=== PATIENT | male | born 1995 | race Two or more races ===

== ENCOUNTER 2017-12-02 19:49 | Observation (INO) | payer MEDICAID, OTHER, SELFPAY ==
[~2017-12-02] VITALS: Ht 167.6 cm; Wt 68.0 kg
[2017-12-02 20:23] LABS: BASOPHILS # (AUTO) 0.03 x10^3/uL (0-0.1); BASOPHILS % (AUTO) 0 % (0-1); EOSINOPHILS % (AUTO) 0 % (1-7); LYMPHOCYTES # (AUTO) 0.84 x10^3/uL (1-3.4); LYMPHOCYTES % (AUTO) 5 % (22-44); MD NO; MEAN CORPUSCULAR HEMOGLOBIN 30.5 pg (27.5-34.5); MEAN CORPUSCULAR HGB CONC 34.6 g/dL (33.2-36.2); MEAN PLATELET VOLUME 8.2 fL (7.4-10.4); MONOCYTES # (AUTO) 0.36 x10^3/uL (0.2-0.8); MONOCYTES % (AUTO) 2 % (2-9); NEUTROPHILS # (AUTO) 15.76 x10^3/uL (1.8-6.8); NEUTROPHILS % (AUTO) 93 % (42-75); PLATELET COUNT 260 x10^3/uL (130-400); RED BLOOD COUNT 5.16 x10^6/uL (4.38-5.82); RED CELL DISTRIBUTION WIDTH 13.3 % (9.4-14.8)
[2017-12-02 20:26] LABS: ALANINE AMINOTRANSFERASE 22 U/L (12-78); ANION GAP 8 mmol/L (5-15); CALCIUM 9.9 mg/dL (8.5-10.1); CHLORIDE 105 mmol/L (98-107); CREATININE 1.08 mg/dL (0.7-1.3)
[2017-12-02 20:28] LABS: ALKALINE PHOSPHATASE 82 U/L (45-117); BILIRUBIN,TOTAL 1.3 mg/dL (0.2-1.0); TOTAL PROTEIN 8.5 g/dL (6.4-8.2)
[2017-12-02] MEDS ORDERED: SODIUM CHLORIDE FLUSH 10ML SYR IVF ONE ×2 (20:30→22:00)
[2017-12-02] MEDS ORDERED: PROMETHAZINE 25 MG/ML, 1ML ONE (20:51)
[2017-12-02] MEDS ORDERED: PROMETHAZINE 25 MG/ML, 1ML IM ONE (21:00)
[2017-12-02 21:18] LABS: MICROSCOPIC INDICATED
[2017-12-02 21:26] LABS: CULTURE INDICATED? NO
[2017-12-02] MEDS ORDERED: SODIUM CHLORIDE 0.9% 1,000ML IVBOLUS ONE (22:00)
[2017-12-02] MEDS ORDERED: PROCHLORPERAZINE 5 MG/ML, 2ML IV ONE (22:00)
[2017-12-02] MEDS ORDERED: PROCHLORPERAZINE 5 MG/ML, 2ML ONE (22:05)
[2017-12-03] MEDS ORDERED: ACETAMINOPHEN 325 MG TABLET PO PRN
[2017-12-03] MEDS ORDERED: BISACODYL 10 MG SUPP PR PRN
[2017-12-03] MEDS ORDERED: PROMETHAZINE 25 MG/ML, 1ML IM PRN
[2017-12-03] MEDS ORDERED: SIMETHICONE DROPS 40 MG/0.6 ML BOTTLE PO PRN (00:30)
[2017-12-03 01:14] VITALS: BP 85/50
[2017-12-03] MEDS: D5%-0.45% NACL 1,000 ML IV SCH ×2 (01:27→10:39)
[2017-12-03 01:35] VITALS: BP 137/79
[2017-12-03 01:57] VITALS: BP 100/54
[2017-12-03 08:25] VITALS: BP 102/64
[2017-12-03 14:51] VITALS: BP 108/72
== END 2017-12-03 17:40 | disposition home or self-care (01) ==
LOC: ED 23:38 → INTOOBSV 23:59 → EDIP 23:59 → 3NW 12-03 00:13 → UNDODISIN 12-03 17:40
PROVIDERS: ADMIT Internal Medicine; ATTEND Hospitalist
DX: R11.2 Nausea with vomiting, unspecified (principal); F12.10 Cannabis abuse, uncomplicated; D72.829 Elevated white blood cell count, unspecified; Z87.891 Personal history of nicotine dependence; E86.0 Dehydration
CPT/HCPCS: 36415; 74021; 80053; 81001; 83690; 85025; 96361; 96372; 96374; 99285; G0378; J0780; J2550; J7030

== ENCOUNTER 2018-03-11 09:57 | Emergency (ER) | payer SELFPAY ==
[~2018-03-11] VITALS: Ht 167.6 cm; Wt 69.7 kg
[2018-03-11 12:23] LABS: BASOPHILS # (AUTO) 0.02 x10^3/uL (0-0.1); BASOPHILS % (AUTO) 0 % (0-1); EOSINOPHILS % (AUTO) 0 % (1-7); LYMPHOCYTES # (AUTO) 0.97 x10^3/uL (1-3.4); LYMPHOCYTES % (AUTO) 6 % (22-44); MD NO; MEAN CORPUSCULAR HEMOGLOBIN 30.7 pg (27.5-34.5); MEAN CORPUSCULAR HGB CONC 34.5 g/dL (33.2-36.2); MEAN CORPUSCULAR VOLUME 89.1 fL (81-97); MEAN PLATELET VOLUME 8.7 fL (7.4-10.4); MONOCYTES # (AUTO) 0.45 x10^3/uL (0.2-0.8); MONOCYTES % (AUTO) 3 % (2-9); NEUTROPHILS # (AUTO) 15.49 x10^3/uL (1.8-6.8); NEUTROPHILS % (AUTO) 92 % (42-75); PLATELET COUNT 213 x10^3/uL (130-400); RED BLOOD COUNT 5.54 x10^6/uL (4.38-5.82); RED CELL DISTRIBUTION WIDTH 13.3 % (9.4-14.8)
[2018-03-11] MEDS ORDERED: SODIUM CHLORIDE 0.9% 1,000ML IVBOLUS ONE ×2 (12:30→13:30)
[2018-03-11] MEDS ORDERED: ONDANSETRON 2MG/ML, 2ML IVPush ONE (12:30)
[2018-03-11] MEDS ORDERED: SODIUM CHLORIDE FLUSH 10ML SYR IVF ONE (12:30)
[2018-03-11 12:32] LABS: ALBUMIN 4.9 g/dL (3.4-5.0); ANION GAP 8 mmol/L (5-15); CALCIUM 9.8 mg/dL (8.5-10.1); CHLORIDE 108 mmol/L (98-107)
[2018-03-11 12:36] LABS: ALANINE AMINOTRANSFERASE 30 U/L (12-78); ALKALINE PHOSPHATASE 87 U/L (45-117); BILIRUBIN,TOTAL 0.6 mg/dL (0.2-1.0); CREATININE 0.95 mg/dL (0.7-1.3); TOTAL PROTEIN 8.3 g/dL (6.4-8.2)
[2018-03-11] MEDS ORDERED: ONDANSETRON ODT 4 MG ONE (12:40)
[2018-03-11] MEDS ORDERED: MORPHINE SULFATE 4 MG/ML, 1ML ONE (13:19)
[2018-03-11] MEDS ORDERED: MORPHINE SULFATE 4 MG/ML, 1ML IVPush PRN (13:30)
[2018-03-11] MEDS ORDERED: OMNIPAQUE 350 MG/ML, 100ML BOTTLE ONE (13:40)
[2018-03-11 14:28] VITALS: BP 118/71
== END 2018-03-11 14:30 | disposition home or self-care (01) ==
LOC: ED 13:04
DX: K52.9 Noninfective gastroenteritis and colitis, unspecified (principal); T78.1XXA Other adverse food reactions, not elsewhere classified, initial encounter; E86.0 Dehydration; X58.XXXA Exposure to other specified factors, initial encounter
CPT/HCPCS: 36415; 74177; 80053; 83690; 85025; 96361; 96374; 96375; 99285; J2405; J7030; Q9967

== ENCOUNTER 2018-03-11 21:41 | Emergency (ER) | payer SELFPAY ==
[~2018-03-11] VITALS: Ht 167.6 cm; Wt 65.0 kg
[2018-03-11] MEDS ORDERED: METOCLOPRAMIDE 5 MG/ML, 2ML ONE (22:18)
[2018-03-11] MEDS ORDERED: DIPHENHYDRAMINE 50 MG/ML, 1ML ONE (22:18)
[2018-03-11 22:28] LABS: BASOPHILS # (AUTO) 0.03 x10^3/uL (0-0.1); BASOPHILS % (AUTO) 0 % (0-1); EOSINOPHILS % (AUTO) 0 % (1-7); LYMPHOCYTES # (AUTO) 1.14 x10^3/uL (1-3.4); LYMPHOCYTES % (AUTO) 10 % (22-44); MD NO; MEAN CORPUSCULAR HGB CONC 34.2 g/dL (33.2-36.2); MEAN CORPUSCULAR VOLUME 87.7 fL (81-97); MEAN PLATELET VOLUME 8.9 fL (7.4-10.4); MONOCYTES # (AUTO) 0.43 x10^3/uL (0.2-0.8); MONOCYTES % (AUTO) 4 % (2-9); NEUTROPHILS # (AUTO) 9.57 x10^3/uL (1.8-6.8); NEUTROPHILS % (AUTO) 86 % (42-75); PLATELET COUNT 235 x10^3/uL (130-400); RED BLOOD COUNT 5.49 x10^6/uL (4.38-5.82); RED CELL DISTRIBUTION WIDTH 13.2 % (9.4-14.8)
[2018-03-11] MEDS ORDERED: METOCLOPRAMIDE 5 MG/ML, 2ML IVPush ONE (22:30)
[2018-03-11] MEDS ORDERED: SODIUM CHLORIDE 0.9% 1,000ML IVBOLUS ONE (22:30)
[2018-03-11] MEDS ORDERED: DIPHENHYDRAMINE 50 MG/ML, 1ML IVPush ONE (22:30)
[2018-03-11 22:35] LABS: ALANINE AMINOTRANSFERASE 29 U/L (12-78); ALBUMIN 5.1 g/dL (3.4-5.0); ANION GAP 9 mmol/L (5-15); CALCIUM 9.3 mg/dL (8.5-10.1); CHLORIDE 102 mmol/L (98-107); CREATININE 1.14 mg/dL (0.7-1.3)
[2018-03-11 22:37] LABS: ALKALINE PHOSPHATASE 91 U/L (45-117); BILIRUBIN,TOTAL 1.1 mg/dL (0.2-1.0); TOTAL PROTEIN 8.7 g/dL (6.4-8.2)
[2018-03-11] MEDS ORDERED: POTASSIUM CHLORIDE 20 MEQ TAB.ER.PRT ONE (23:15)
[2018-03-11] MEDS ORDERED: POTASSIUM CHLORIDE 20 MEQ TAB.ER.PRT PO ONE (23:30)
[2018-03-11 23:40] VITALS: BP 127/85
== END 2018-03-11 23:41 | disposition home or self-care (01) ==
LOC: ED 21:55
DX: R11.2 Nausea with vomiting, unspecified (principal); R19.7 Diarrhea, unspecified; E87.6 Hypokalemia
CPT/HCPCS: 36415; 80053; 83690; 85025; 96361; 96374; 96375; 99284; J1200; J2765; J7030

== ENCOUNTER 2018-04-19 08:52 | Emergency (ER) | payer OTHER ==
[~2018-04-19] VITALS: Ht 167.6 cm; Wt 68.0 kg
[2018-04-19] MEDS ORDERED: FAMOTIDINE 20 MG/2 ML ONE (09:25)
[2018-04-19] MEDS ORDERED: ONDANSETRON 2MG/ML, 2ML ONE (09:27)
[2018-04-19 09:30] LABS: BASOPHILS # (AUTO) 0.05 x10^3/uL (0-0.1); BASOPHILS % (AUTO) 0 % (0-1); EOSINOPHILS % (AUTO) 0 % (1-7); LYMPHOCYTES # (AUTO) 1.54 x10^3/uL (1-3.4); LYMPHOCYTES % (AUTO) 10 % (22-44); MD NO; MEAN CORPUSCULAR HEMOGLOBIN 30.1 pg (27.5-34.5); MEAN CORPUSCULAR VOLUME 88.6 fL (81-97); MEAN PLATELET VOLUME 8.2 fL (7.4-10.4); MONOCYTES # (AUTO) 0.54 x10^3/uL (0.2-0.8); MONOCYTES % (AUTO) 4 % (2-9); NEUTROPHILS # (AUTO) 13.46 x10^3/uL (1.8-6.8); NEUTROPHILS % (AUTO) 86 % (42-75); PLATELET COUNT 230 x10^3/uL (130-400); RED BLOOD COUNT 5.56 x10^6/uL (4.38-5.82); RED CELL DISTRIBUTION WIDTH 13.4 % (9.4-14.8)
[2018-04-19] MEDS ORDERED: FAMOTIDINE 20 MG/2 ML IVP ONE (09:30)
[2018-04-19] MEDS ORDERED: SODIUM CHLORIDE 0.9% 1,000ML IVBOLUS ONE (09:30)
[2018-04-19] MEDS ORDERED: ONDANSETRON 2MG/ML, 2ML IVPush ONE (09:30)
[2018-04-19] MEDS ORDERED: SODIUM CHLORIDE FLUSH 10ML SYR IVF ONE (09:30)
[2018-04-19 09:40] LABS: CHLORIDE 108 mmol/L (98-107)
[2018-04-19 09:41] LABS: ALANINE AMINOTRANSFERASE 25 U/L (12-78); ALBUMIN 4.7 g/dL (3.4-5.0); ANION GAP 6 mmol/L (5-15); CALCIUM 9.6 mg/dL (8.5-10.1); CREATININE 0.91 mg/dL (0.7-1.3)
[2018-04-19 09:45] LABS: ALKALINE PHOSPHATASE 85 U/L (45-117); BILIRUBIN,TOTAL 0.4 mg/dL (0.2-1.0); TOTAL PROTEIN 8.2 g/dL (6.4-8.2)
[2018-04-19] MEDS ORDERED: METOCLOPRAMIDE 5 MG/ML, 2ML ONE (11:27)
[2018-04-19] MEDS ORDERED: METOCLOPRAMIDE 5 MG/ML, 2ML IVPush ONE (11:30)
[2018-04-19 12:26] VITALS: BP 113/78
== END 2018-04-19 12:29 | disposition home or self-care (01) ==
LOC: ED 10:00
DX: R11.2 Nausea with vomiting, unspecified (principal); R10.13 Epigastric pain
CPT/HCPCS: 36415; 74021; 80053; 83690; 85025; 96361; 96374; 96375; 99285; J2405; J2765; J7030; S0028

== ENCOUNTER 2018-04-19 21:25 | Emergency (ER) | payer OTHER ==
[~2018-04-19] VITALS: Ht 167.6 cm; Wt 67.7 kg
[2018-04-19] MEDS ORDERED: PROCHLORPERAZINE 5 MG/ML, 2ML ONE (21:45)
[2018-04-19] MEDS ORDERED: SODIUM CHLORIDE 0.9% 1,000ML IVBOLUS ONE (22:00)
[2018-04-19] MEDS ORDERED: PROCHLORPERAZINE 5 MG/ML, 2ML IVPush ONE (22:00)
[2018-04-19 22:06] LABS: BASOPHILS # (AUTO) 0.01 x10^3/uL (0-0.1); BASOPHILS % (AUTO) 0 % (0-1); EOSINOPHILS % (AUTO) 0 % (1-7); LYMPHOCYTES # (AUTO) 1.47 x10^3/uL (1-3.4); LYMPHOCYTES % (AUTO) 13 % (22-44); MD NO; MEAN CORPUSCULAR HEMOGLOBIN 30.6 pg (27.5-34.5); MEAN CORPUSCULAR HGB CONC 34.6 g/dL (33.2-36.2); MEAN CORPUSCULAR VOLUME 88.5 fL (81-97); MEAN PLATELET VOLUME 8.4 fL (7.4-10.4); MONOCYTES # (AUTO) 0.68 x10^3/uL (0.2-0.8); MONOCYTES % (AUTO) 6 % (2-9); NEUTROPHILS # (AUTO) 8.77 x10^3/uL (1.8-6.8); NEUTROPHILS % (AUTO) 80 % (42-75); PLATELET COUNT 226 x10^3/uL (130-400); RED BLOOD COUNT 5.14 x10^6/uL (4.38-5.82); RED CELL DISTRIBUTION WIDTH 13.2 % (9.4-14.8)
[2018-04-19 22:16] LABS: ALANINE AMINOTRANSFERASE 22 U/L (12-78); ALBUMIN 4.2 g/dL (3.4-5.0); ANION GAP 12 mmol/L (5-15); CALCIUM 8.8 mg/dL (8.5-10.1); CHLORIDE 107 mmol/L (98-107); CREATININE 0.94 mg/dL (0.7-1.3)
[2018-04-19 22:19] LABS: ALKALINE PHOSPHATASE 74 U/L (45-117); BILIRUBIN,TOTAL 0.7 mg/dL (0.2-1.0); TOTAL PROTEIN 7.6 g/dL (6.4-8.2)
[2018-04-19 23:00] VITALS: BP 122/82
== END 2018-04-19 23:49 | disposition home or self-care (01) ==
LOC: ED 21:43
DX: R11.2 Nausea with vomiting, unspecified (principal); R19.7 Diarrhea, unspecified; E86.9 Volume depletion, unspecified; F17.200 Nicotine dependence, unspecified, uncomplicated
CPT/HCPCS: 36415; 80053; 85025; 96374; 99284; J0780; J7030

== ENCOUNTER 2019-01-12 15:00 | Emergency (ER) | payer SELFPAY ==
[~2019-01-12] VITALS: Ht 170.2 cm; Wt 83.2 kg
--- NOTE | 2019-01-12 15:05 | NUR ---
PT ARRIVES T ROOM 1 AMBULATORY WITH FRIEND. PT C/O VOMITING WITH EIPGASTRIC ABD PAIN SINCE 4AM. REPORTING FLANK PAIN AND URINARY PAIN X1 WEEK. PT AAO X 4, DRESSED IN GOWN AND RESTING COMFORTABLY ON GURNEY. ON ROOM AIR. FALL PRECAUTIONS IN PLACE.
[2019-01-12] MEDS ORDERED: PROMETHAZINE 25 MG/ML, 1ML IM ONE (16:00)
[2019-01-12] MEDS ORDERED: PROMETHAZINE 25 MG/ML, 1ML ONE (16:07)
--- NOTE | 2019-01-12 16:11 | NUR ---
PT MEDICATED FOR NAUSEA PER MD ORDER, SEE MAR. PT PROVIDED BLANKET FOR COMFORT.
[2019-01-12 16:24] LABS: BASOPHILS # (AUTO) 0.02 x10^3/uL (0-0.1); BASOPHILS % (AUTO) 0 % (0-1); EOSINOPHILS % (AUTO) 0 % (1-7); LYMPHOCYTES # (AUTO) 1.06 x10^3/uL (1-3.4); LYMPHOCYTES % (AUTO) 7 % (22-44); MD NO; MEAN CORPUSCULAR HEMOGLOBIN 30.2 pg (27.5-34.5); MEAN CORPUSCULAR HGB CONC 33.8 g/dL (33.2-36.2); MEAN CORPUSCULAR VOLUME 89.4 fL (81-97); MEAN PLATELET VOLUME 8.2 fL (7.4-10.4); MONOCYTES # (AUTO) 0.67 x10^3/uL (0.2-0.8); MONOCYTES % (AUTO) 5 % (2-9); NEUTROPHILS # (AUTO) 12.71 x10^3/uL (1.8-6.8); NEUTROPHILS % (AUTO) 88 % (42-75); PLATELET COUNT 236 x10^3/uL (130-400); RED BLOOD COUNT 5.38 x10^6/uL (4.38-5.82); RED CELL DISTRIBUTION WIDTH 13.8 % (9.4-14.8)
[2019-01-12 16:36] LABS: ALANINE AMINOTRANSFERASE 27 U/L (12-78); ALBUMIN 5.1 g/dL (3.4-5.0); ANION GAP 10 mmol/L (5-15); CALCIUM 9.8 mg/dL (8.5-10.1); CHLORIDE 104 mmol/L (98-107); CREATININE 2.04 mg/dL (0.7-1.3)
[2019-01-12 16:39] LABS: ALKALINE PHOSPHATASE 83 U/L (45-117); TOTAL PROTEIN 8.7 g/dL (6.4-8.2)
[2019-01-12] MEDS ORDERED: SODIUM CHLORIDE FLUSH 10ML SYR IVF ONE (17:30)
[2019-01-12] MEDS ORDERED: SODIUM CHLORIDE 0.9% 1,000ML IVBOLUS ONE (17:30)
--- NOTE | 2019-01-12 17:31 | NUR ---
PIV ESTABLISHED BY THIS RN. BOLUS OF NS INFUSING PER MD ORDER, SEE MAR.
[2019-01-12 17:58] LABS: MICROSCOPIC AUTO
[2019-01-12 18:11] LABS: CULTURE INDICATED? YES
[2019-01-12] MEDS ORDERED: FAMOTIDINE 20 MG/2 ML ONE (18:13)
[2019-01-12] MEDS ORDERED: PROCHLORPERAZINE 5 MG/ML, 2ML ONE (18:13)
--- NOTE | 2019-01-12 18:17 | NUR ---
PT STILL NAUSEOUS, NOTIFIED, NEW ORDERS RECEIVED AND IMPLEMENTED, SEE MAR.
[2019-01-12] MEDS ORDERED: FAMOTIDINE 20 MG/2 ML IVP ONE (18:30)
[2019-01-12] MEDS ORDERED: PROCHLORPERAZINE 5 MG/ML, 2ML IVPush ONE (18:30)
--- NOTE | 2019-01-12 18:48 | NUR ---
PO CHALLENGE IN PROGRESS.
--- NOTE | 2019-01-12 19:04 | NUR ---
REPORT GIVEN TO DENNIS MAYO.
--- NOTE | 2019-01-12 19:31 | NUR ---
PT RESTING ON GURNEY, STATED "I HAVEN'T HAD ANYTHING ELSE TO DRINK", DISCUSSED NEED FOR PT TO TAKE PO FLUIDS, PT VERBALIZED UNDERXSTANDING AND AGREEMENT. MONITORS IN PLACE, CALL LIGHT WITHIN REACH
[2019-01-12 19:33] VITALS: BP 98/49
--- NOTE | 2019-01-12 19:45 | NUR ---
PT TOLERATING PO FLUIDS, DENIES NAUSEA, PAIN
--- NOTE | 2019-01-12 20:01 | NUR ---
ALEJO RN: PT D/C WITH D/C SUMMARY AND SCRIPTS. ALL QUESTIONS ANSWERED. PT DENIES ANY OTHER NEEDS PERTAINING TO THIS VISIT. PT IV D/C WITH TIP INTACT. PT AMBUALTES TO REGISTRATION DESK WITH STEADY GAIT FOR D/C HOME WITH COUSIN.
== END 2019-01-12 20:03 | disposition home or self-care (01) ==
LOC: ED 16:18
DX: R11.2 Nausea with vomiting, unspecified (principal); N28.9 Disorder of kidney and ureter, unspecified; R10.13 Epigastric pain; F17.200 Nicotine dependence, unspecified, uncomplicated
CPT/HCPCS: 36415; 74021; 80053; 81001; 83690; 85025; 87086; 96361; 96372; 96374; 96375; 99284; J0780; J2550; J3490; J7030

== ENCOUNTER 2019-01-14 06:35 | Emergency (ER) | payer SELFPAY ==
[~2019-01-14] VITALS: Ht 167.6 cm; Wt 85.1 kg
[2019-01-14] MEDS ORDERED: ONDANSETRON 2MG/ML, 2ML IVPush ONE (07:00)
[2019-01-14] MEDS ORDERED: SODIUM CHLORIDE 0.9% 1,000ML IVBOLUS ONE (07:00)
[2019-01-14] MEDS ORDERED: SODIUM CHLORIDE FLUSH 10ML SYR IVF ONE (07:00)
--- NOTE | 2019-01-14 07:07 | NUR ---
PT REPORTS N/V THAT STARTED THIS MORNING. DENIES DIARRHEA. PT WAS SEEN OVER THE WEEKEND IN THIS ED FOR N/V.
--- NOTE | 2019-01-14 07:14 | NUR ---
PT TO XRAY
[2019-01-14] MEDS ORDERED: ONDANSETRON 2MG/ML, 2ML ONE (07:16)
--- NOTE | 2019-01-14 07:40 | NUR ---
PT MEDICATED FOR NAUSEA PER EMAR
--- NOTE | 2019-01-14 07:44 | NUR ---
PT STATES HE IS UNABLE TO URINATE AT THIS TIME
[2019-01-14 07:53] LABS: BASOPHILS # (AUTO) 0.03 x10^3/uL (0-0.1); BASOPHILS % (AUTO) 0 % (0-1); EOSINOPHILS # (AUTO) 0.11 x10^3/uL (0-0.4); EOSINOPHILS % (AUTO) 1 % (1-7); LYMPHOCYTES # (AUTO) 2.29 x10^3/uL (1-3.4); LYMPHOCYTES % (AUTO) 22 % (22-44); MD NO; MEAN CORPUSCULAR HEMOGLOBIN 29.7 pg (27.5-34.5); MEAN CORPUSCULAR HGB CONC 33.5 g/dL (33.2-36.2); MEAN CORPUSCULAR VOLUME 88.5 fL (81-97); MEAN PLATELET VOLUME 8.1 fL (7.4-10.4); MONOCYTES # (AUTO) 1.02 x10^3/uL (0.2-0.8); MONOCYTES % (AUTO) 10 % (2-9); NEUTROPHILS # (AUTO) 7.22 x10^3/uL (1.8-6.8); NEUTROPHILS % (AUTO) 68 % (42-75); PLATELET COUNT 198 x10^3/uL (130-400); RED BLOOD COUNT 5.41 x10^6/uL (4.38-5.82); RED CELL DISTRIBUTION WIDTH 13.3 % (9.4-14.8)
[2019-01-14 08:02] LABS: ALANINE AMINOTRANSFERASE 36 U/L (12-78); ALBUMIN 4.5 g/dL (3.4-5.0); ANION GAP 12 mmol/L (5-15); CHLORIDE 106 mmol/L (98-107); CREATININE 1.43 mg/dL (0.7-1.3)
[2019-01-14 08:04] LABS: ALKALINE PHOSPHATASE 80 U/L (45-117); BILIRUBIN,TOTAL 0.7 mg/dL (0.2-1.0)
--- NOTE | 2019-01-14 08:31 | NUR ---
PT PROVIDED URINE SAMPLE, TUBED TO LAB. PT STILL C/O NAUSEA WITH VOMITING. ER MD WALKER NOTIFIED.
[2019-01-14] MEDS ORDERED: HALOPERIDOL 5 MG/ML ONE (08:37)
[2019-01-14] MEDS ORDERED: DIPHENHYDRAMINE 50 MG/ML, 1ML ONE (08:37)
[2019-01-14 08:55] LABS: MICROSCOPIC NOT IND
[2019-01-14] MEDS ORDERED: HALOPERIDOL 5 MG/ML IM ONE (09:00)
[2019-01-14] MEDS ORDERED: DIPHENHYDRAMINE 50 MG/ML, 1ML IVPush ONE (09:00)
[2019-01-14 09:02] LABS: CULTURE INDICATED? NO
[2019-01-14 09:32] VITALS: BP 95/50
--- NOTE | 2019-01-14 09:33 | NUR ---
PT SLEEPING ON GURNEY. PT REPORTS HE FEELS BETTER, NAUSEA HAS IMPROVED AND NO EPISODES OF VOMITTING SINCE HE WAS LAST RECIEVING MEDICATIONS. PT LABS ARE BACK AND PT HAS BEEN PLACED UP FOR RECHECK BY PHYSICIAN
--- NOTE | 2019-01-14 09:53 | NUR ---
Patient/Caregiver given discharge instructions and they have confirmed that they understand the instructions. Patient ambulatory with steady gait.
== END 2019-01-14 09:54 | disposition home or self-care (01) ==
LOC: ED 08:33
DX: R11.2 Nausea with vomiting, unspecified (principal)
CPT/HCPCS: 36415; 74021; 80053; 81003; 83690; 85025; 93005; 96361; 96372; 96374; 96375; 99284; J1200; J1630; J2405; J7030

== ENCOUNTER 2019-07-14 11:00 | Inpatient (IN) | payer OTHER ==
[~2019-07-14] VITALS: Ht 167.6 cm; Wt 76.3 kg
--- NOTE | 2019-07-14 11:20 | NUR ---
PT TO ED FROM HOME C/O VOMITING SINCE 0700. ABD PAIN STARTED AFTER. C/O SOME CONSTIPATION, SMALL HARD STOOL THIS AM. PAIN IN MIDDLE OF ABD. SOFT. BS HYPOACT. SEEN IN ED FOR SAME EVERY COUPLE MONTHS. SMOKES 2 BLUNTS A DAY. DOES NOT KNOW CAUSE OF VOMITING. A&OX4 GCS 15 PA IN ROOM FOR EVAL, CALL COURTNEY IN REACH SISTER AT BEDSIDE.
[2019-07-14] MEDS ORDERED: PROMETHAZINE 25 MG/ML, 1ML IM ONE (11:30)
[2019-07-14] MEDS ORDERED: SODIUM CHLORIDE 0.9% 1,000ML IVBOLUS ONE (11:30)
[2019-07-14] MEDS ORDERED: SODIUM CHLORIDE FLUSH 10ML SYR IVF ONE (11:30)
[2019-07-14] MEDS ORDERED: FAMOTIDINE 20 MG/2 ML IVPush ONE (11:30)
[2019-07-14] MEDS ORDERED: PROMETHAZINE 25 MG/ML, 1ML ONE (11:37)
[2019-07-14] MEDS ORDERED: FAMOTIDINE 20 MG/2 ML ONE (11:37)
--- NOTE | 2019-07-14 11:52 | NUR ---
PIV EST MEDS PER MAR LABS AND UA SENT VSS CALL COURTNEY IN REACH.
[2019-07-14] MEDS ORDERED: HALOPERIDOL 5 MG/ML ONE (11:58)
[2019-07-14] MEDS ORDERED: HALOPERIDOL 5 MG/ML IV ONE (12:00)
[2019-07-14 12:09] LABS: BASOPHILS % (AUTO) 0 % (0-1); EOSINOPHILS # (AUTO) 0.01 x10^3/uL (0-0.4); EOSINOPHILS % (AUTO) 0 % (1-7); LYMPHOCYTES # (AUTO) 1.71 x10^3/uL (1-3.4); LYMPHOCYTES % (AUTO) 11 % (22-44); MD NO; MEAN CORPUSCULAR HEMOGLOBIN 29.9 pg (27.5-34.5); MEAN CORPUSCULAR HGB CONC 33.4 g/dL (33.2-36.2); MEAN CORPUSCULAR VOLUME 89.6 fL (81-97); MEAN PLATELET VOLUME 8.2 fL (7.4-10.4); MONOCYTES # (AUTO) 0.38 x10^3/uL (0.2-0.8); MONOCYTES % (AUTO) 3 % (2-9); NEUTROPHILS # (AUTO) 13.21 x10^3/uL (1.8-6.8); NEUTROPHILS % (AUTO) 86 % (42-75); PLATELET COUNT 236 x10^3/uL (130-400); RED BLOOD COUNT 5.43 x10^6/uL (4.38-5.82); RED CELL DISTRIBUTION WIDTH 13.3 % (9.4-14.8)
[2019-07-14 12:13] LABS: MICROSCOPIC NOT IND
[2019-07-14 12:16] LABS: CULTURE INDICATED? NO
[2019-07-14 12:21] LABS: ALANINE AMINOTRANSFERASE 25 U/L (12-78); ALBUMIN 4.6 g/dL (3.4-5.0); ANION GAP 5 mmol/L (5-15); CALCIUM 9.4 mg/dL (8.5-10.1); CHLORIDE 107 mmol/L (98-107); CREATININE 0.87 mg/dL (0.7-1.3)
[2019-07-14 12:24] LABS: ALKALINE PHOSPHATASE 87 U/L (45-117); BILIRUBIN,TOTAL 0.6 mg/dL (0.2-1.0); TOTAL PROTEIN 8.5 g/dL (6.4-8.2)
[2019-07-14] MEDS ORDERED: SODIUM CHLORIDE 0.9% 1,000 ML IV ONE (12:44)
--- NOTE | 2019-07-14 13:14 | NUR ---
pt to be admitted, md in room to update. vss. NAD. call guillaume in reach.
[2019-07-14] MEDS ORDERED: SODIUM CHLORIDE 0.9% 1,000 ML IV SCH (13:17)
[2019-07-14] MEDS ORDERED: LABETALOL 5MG/ML, 20ML IVPush PRN (13:30)
[2019-07-14] MEDS ORDERED: ONDANSETRON ODT 4 MG PO PRN (13:30)
[2019-07-14] MEDS ORDERED: NICOTINE 7 MG/24 HR PATCH.TD24 TD SCH (13:30)
[2019-07-14] MEDS ORDERED: ONDANSETRON 2MG/ML, 2ML IVPush PRN (13:30)
[2019-07-14] MEDS ORDERED: PROMETHAZINE 25 MG/ML, 1ML IM PRN (13:30)
[2019-07-14] MEDS ORDERED: hydrALAzine 20 MG/ML, 1ML IVPush PRN (13:30)
[2019-07-14] MEDS ORDERED: ACETAMINOPHEN 325 MG TABLET PO PRN (13:30)
--- NOTE | 2019-07-14 13:35 | NUR ---
IVF INFUSING, IV RETAPED, BLANKETS, AWAITING BED. NAUSEA IMPROVED, NO FURTHER VOMITING. CALL COURTNEY IN REACH.
--- NOTE | 2019-07-14 14:17 | NUR ---
attempt to call report x2. pt resting, vss.
[2019-07-14 14:37] LABS: AMPHETAMINE SCREEN, URINE Negative (Negative)
[2019-07-14 14:39] LABS: BARBITURATE SCREEN, URINE Negative (Negative); BENZODIAZEPINE SCREEN, URINE Negative (Negative); CANNABINOID SCREEN, URINE Positive (Negative); COCAINE SCREEN, URINE Negative (Negative); METHADONE SCREEN, URINE Negative (Negative); OPIATE SCREEN, URINE Negative (Negative)
[2019-07-14] MEDS ORDERED: ENOXAPARIN 40 MG/0.4 ML SQ SCH (15:30)
[2019-07-14 16:28] VITALS: BP 122/78
[2019-07-14 19:09] VITALS: BP 110/72
[2019-07-15 00:56] VITALS: BP 122/80
[2019-07-15 05:31] LABS: BASOPHILS # (AUTO) 0.02 x10^3/uL (0-0.1); BASOPHILS % (AUTO) 0 % (0-1); EOSINOPHILS # (AUTO) 0.06 x10^3/uL (0-0.4); EOSINOPHILS % (AUTO) 1 % (1-7); LYMPHOCYTES # (AUTO) 2.73 x10^3/uL (1-3.4); LYMPHOCYTES % (AUTO) 20 % (22-44); MD NO; MEAN CORPUSCULAR HEMOGLOBIN 29.3 pg (27.5-34.5); MEAN CORPUSCULAR HGB CONC 33.1 g/dL (33.2-36.2); MEAN CORPUSCULAR VOLUME 88.5 fL (81-97); MEAN PLATELET VOLUME 8.5 fL (7.4-10.4); MONOCYTES # (AUTO) 1.31 x10^3/uL (0.2-0.8); MONOCYTES % (AUTO) 10 % (2-9); NEUTROPHILS # (AUTO) 9.61 x10^3/uL (1.8-6.8); NEUTROPHILS % (AUTO) 70 % (42-75); PLATELET COUNT 213 x10^3/uL (130-400); RED BLOOD COUNT 5.03 x10^6/uL (4.38-5.82); RED CELL DISTRIBUTION WIDTH 13.5 % (9.4-14.8)
[2019-07-15 05:40] LABS: ALBUMIN 3.9 g/dL (3.4-5.0); ANION GAP 7 mmol/L (5-15); CALCIUM 8.6 mg/dL (8.5-10.1); CHLORIDE 107 mmol/L (98-107)
[2019-07-15 05:44] LABS: ALANINE AMINOTRANSFERASE 26 U/L (12-78); ALKALINE PHOSPHATASE 71 U/L (45-117); BILIRUBIN,TOTAL 0.7 mg/dL (0.2-1.0); CREATININE 0.89 mg/dL (0.7-1.3); TOTAL PROTEIN 7.5 g/dL (6.4-8.2)
[2019-07-15] MEDS ORDERED: POTASSIUM CHLORIDE 20 MEQ TAB.ER.PRT PO ONE (07:00)
[2019-07-15] MEDS ORDERED: PANTOPRAZOLE 40 MG IV IVPush SCH (07:30)
[2019-07-15 07:33] VITALS: BP 86/48
[2019-07-15] MEDS ORDERED: PANT40TA5 PO (11:11)
[2019-07-15] MEDS ORDERED: FLU VACC QS2019-20 36MOS UP/PF 0.5 ML IM-VACC ONE (11:30)
== END 2019-07-15 12:50 | disposition home or self-care (01) | DRG 392 ==
LOC: ED 11:59 → EDIP 12:43 → 3N 15:05 → DCLOUNGE 07-15 12:44
PROVIDERS: ADMIT Internal Medicine; ATTEND Hospitalist
DX: K29.70 Gastritis, unspecified, without bleeding (principal); E86.0 Dehydration; D72.829 Elevated white blood cell count, unspecified; K59.00 Constipation, unspecified; F12.10 Cannabis abuse, uncomplicated; R73.9 Hyperglycemia, unspecified; F19.10 Other psychoactive substance abuse, uncomplicated; Z71.6 Tobacco abuse counseling
CPT/HCPCS: 36415; J3490; 80053; 80307; 81003; 82150; 83036; 83690; 83735; 84443; 85025; 90686; 99285; G0378; J1650; J2405; J2550; C9113; J1630; J7030

== ENCOUNTER 2019-12-20 15:34 | Emergency (ER) | payer MEDICAID ==
[~2019-12-20] VITALS: Ht 167.6 cm; Wt 69.4 kg
[~2019-12-20 15:34] MED LIST: PANT40TA5 PO
[2019-12-20 15:35] VITALS: BP 104/73
== END 2019-12-20 16:52 | disposition home or self-care (01) ==
LOC: ED 16:23
DX: S62.325A Displaced fracture of shaft of fourth metacarpal bone, left hand, initial encounter for closed fracture (principal); F17.200 Nicotine dependence, unspecified, uncomplicated; W19.XXXA Unspecified fall, initial encounter; Y93.89 Activity, other specified; Y92.328 Other athletic field as the place of occurrence of the external cause; Y99.8 Other external cause status
CPT/HCPCS: 29125; 99283